=== PATIENT | male | born 1950 | race Caucasian/White ===

== ENCOUNTER 2019-10-03 19:29 | Emergency (ER) | payer MEDICARE ==
[~2019-10-03] VITALS: Ht 182.9 cm; Wt 84.1 kg
[2019-10-03 19:35] VITALS: BP 117/90
[2019-10-03] MEDS ORDERED: ipratropium/albuterol 3ml nebule NEB ONE (20:25)
[2019-10-03 20:44] LABS: BASOPHILS % (AUTO) 0.3 % (0-1); EOSINOPHILS # (AUTO) 0.2 X10'3 (0-0.9); EOSINOPHILS % (AUTO) 2.7 % (0-6); HEMATOCRIT 39.4 % (42.0-52.0); HEMOGLOBIN 13.5 g/dl (14.0-17.9); LYMPHOCYTES # (AUTO) 1.1 X10'3 (1.1-4.8); LYMPHOCYTES % (AUTO) 12.5 % (21-51); MEAN CORPUSCULAR HEMOGLOBIN 31.3 PG (27.0-31.0); MEAN CORPUSCULAR HGB CONC 34.3 g/dL (33.0-36.5); MEAN CORPUSCULAR VOLUME 91.1 FL (78-98); MEAN PLATELET VOLUME 7.9 FL (7.4-10.4); MONOCYTES # (AUTO) 0.7 X10'3 (0-0.9); MONOCYTES % (AUTO) 8.2 % (2-12); NEUTROPHILS % (AUTO) 76.3 % (42-75); PLATELET COUNT 180 X10'3 (140-440); RED BLOOD COUNT 4.33 X10'6 (4.70-6.10); RED CELL DISTRIBUTION WIDTH 13.6 % (11.5-14.5); WHITE BLOOD COUNT 9.1 X10'3 (4.5-11.0)
[2019-10-03 21:00] LABS: ALANINE AMINOTRANSFERASE 55 U/L (12-78); ALBUMIN 3.6 G/DL (3.4-5.0); ALBUMIN/GLOBULIN RATIO 1.1 (1.1-1.5); ALKALINE PHOSPHATASE 87 IU/L (46-116); ANION GAP 7 (8-16); ASPARTATE AMINO TRANSFERASE 33 U/L (10-37); BILIRUBIN,TOTAL 0.4 MG/DL (0.1-1.0); BLOOD UREA NITROGEN 15 MG/DL (7-18); CALCIUM 8.6 MG/DL (8.5-10.1); CHLORIDE 106 MMOL/L (99-107); CREATININE 1.25 MG/DL (0.60-1.10); GLUCOSE 120 MG/DL (70-104); POTASSIUM 3.7 MMOL/L (3.5-5.1); SODIUM 142 MMOL/L (135-145); TOTAL CARBON DIOXIDE 29.5 MMOL/L (24-32); TOTAL PROTEIN 6.9 G/DL (6.4-8.2); eGFR 57 ML/MIN
[2019-10-03] MEDS ORDERED: PRED20TA PO (21:24)
[2019-10-03] MEDS ORDERED: AZIT250T83 PO (21:24)
== END 2019-10-03 21:37 | disposition home or self-care (01) ==
LOC: ER 19:30
DX: J20.9 Acute bronchitis, unspecified (principal); Z79.899 Other long term (current) drug therapy; Z88.0 Allergy status to penicillin
CPT/HCPCS: 36415; 71045; 80053; 84484; 85025; 93005; 94640; 94760; 99284

== ENCOUNTER 2020-02-07 14:06 | Emergency (ER) | payer OTHER, MEDICARE ==
[~2020-02-07] VITALS: Ht 185.4 cm; Wt 81.8 kg
[2020-02-07] MEDS ORDERED: LIDOcaine 1% W/epiNEPHrine 1:200,000 10ml vial IJ ONE (14:25)
[2020-02-07] MEDS ORDERED: TETanus/Pertussis (Acell)/Diphther VAC/PF (Tdap-Adult) 0.5ml syringe IMVAC ONE (14:25)
--- NOTE | 2020-02-07 14:40 | NUR ---
TC LEI WILLIAMSON FOR PATIENT TO FILE POLICE REPORT. DISPATCH STATES THAT [employer] SHOULD BE HERE FOR REPORT.
[2020-02-07] MEDS ORDERED: METR-159 PO (15:14)
[2020-02-07] MEDS ORDERED: DOXY100C77 PO (15:14)
[2020-02-07 15:17] VITALS: BP 136/83
[2020-02-07] MEDS ORDERED: DOXYCYCLINE 100MG CAPSULE PO STA (16:09)
[2020-02-07] MEDS ORDERED: metroNIDAZOLE 500mg tablet PO ONE (16:10)
== END 2020-02-07 16:20 | disposition home or self-care (01) ==
LOC: ER 14:07
DX: S51.811A Laceration without foreign body of right forearm, initial encounter (principal); Z88.0 Allergy status to penicillin; Z79.899 Other long term (current) drug therapy; Y04.1XXA Assault by human bite, initial encounter; Y93.89 Activity, other specified; Y92.89 Other specified places as the place of occurrence of the external cause; Y99.8 Other external cause status
CPT/HCPCS: 12002; 90471; 90715; 99283; J3490